=== PATIENT | male | born 1995 | race Caucasian/White ===

== ENCOUNTER 2018-01-05 21:49 | Emergency (ER) | payer OTHER ==
[~2018-01-05] VITALS: Ht 167.6 cm; Wt 86.2 kg
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
[2018-01-05] MEDS ORDERED: TDAP [DIPH/PERTUSSIS/TET] 0.5 ML VIAL IM ONE (22:19)
[2018-01-05] MEDS: TDAP [DIPH/PERTUSSIS/TET] 0.5 ML VIAL IM ONE (22:29)
--- NOTE | 2018-01-05 22:31 | NUR ---
Patient discharged to [facility] custody in stable condition. Written and verbal after care instructions given. Patient verbalizes understanding of instruction. Patient is ambulatory with steady gait, vss. nad noted. no further complaints.
[2018-01-05 22:33] VITALS: BP 134/75
== END 2018-01-05 22:37 ==
LOC: ER 21:52
DX: Z02.89 Encounter for other administrative examinations (principal); S00.05XA Superficial foreign body of scalp, initial encounter; J45.909 Unspecified asthma, uncomplicated; F15.10 Other stimulant abuse, uncomplicated; F17.200 Nicotine dependence, unspecified, uncomplicated; X58.XXXA Exposure to other specified factors, initial encounter; Y93.89 Activity, other specified; Y92.89 Other specified places as the place of occurrence of the external cause; Y99.8 Other external cause status
CPT/HCPCS: 90715